=== PATIENT | male | born 1980 | race Hispanic/Latino ===

== ENCOUNTER 2024-09-30 16:10 | Emergency (ER) | payer SELFPAY ==
[~2024-09-30] VITALS: Ht 177.8 cm; Wt 86.2 kg
[2024-09-30 16:39] LABS: BASOPHILS # (AUTO) 0.05 K/uL (0.00-0.20); BASOPHILS % (AUTO) 0.7 % (0.0-5.0); EOSINOPHILS # (AUTO) 0.08 K/uL (0.00-0.70); EOSINOPHILS % (AUTO) 1.2 % (0.0-8.0); HEMATOCRIT 44.4 % (42-54); IMMATURE GRANULOCYTE ABSOLUTE 0.01 K/uL (0-1); LYMPHOCYTES # (AUTO) 1.9 K/uL (1.0-4.8); LYMPHOCYTES % (AUTO) 27.8 % (21.0-51.0); MEAN CORPUSCULAR HEMOGLOBIN 31.7 pg (27.0-33.0); MEAN CORPUSCULAR HGB CONC 33.8 g/dL (32.0-36.0); MEAN CORPUSCULAR VOLUME 93.9 fL (79-99); MONOCYTES # (AUTO) 0.5 K/uL (0.1-1.0); MONOCYTES % (AUTO) 7.8 % (3.0-13.0); NEUTROPHILS # (AUTO) 4.3 K/uL (1.8-7.7); NEUTROPHILS % (AUTO) 62.4 % (40.0-77.0); PLATELET COUNT (AUTO) 250 K/uL (130-400); RED BLOOD CELL COUNT(AUTO) 4.73 MIL/uL (4.50-6.20); RED CELL DISTRIBUTION WIDTH 12.1 % (11.0-15.5); WHITE BLOOD COUNT (AUTO) 6.8 K/uL (4.8-10.8)
[2024-09-30 16:51] LABS: CREATININE 0.9 mg/dL (0.5-1.3)
[2024-09-30 16:54] LABS: INR 1.01 (0.85-1.15); PROTHROMBIN TIME 10.7 SEC (9.6-11.6)
[2024-09-30 16:55] LABS: PARTIAL THROMBOPLASTIN TIME 27.1 SEC (26.3-35.5)
[2024-09-30 16:56] LABS: MAGNESIUM 1.6 mg/dL (1.80-2.40)
[2024-09-30] MEDS: MAGNESIUM 2GM PREMIX 50ML 50 ML IV STA (17:04)
--- NOTE | 2024-09-30 17:04 | HMCIMG ---
PORTABLE CHEST RADIOGRAPH INDICATION: CP COMPARISON: None FINDINGS: Heart size is normal. The pulmonary vascularity and rupinder appear normal. No abnormal pulmonary parenchymal opacity or consolidation identified. No significant pleural effusion noted. No pneumothorax detected. IMPRESSION: No radiographic evidence for any acute cardiopulmonary process.
[2024-09-30 17:06] LABS: APPEARANCE,URINE CLEAR (CLEAR); BILIRUBIN,URINE NEGATIVE (NEGATIVE); COLOR,URINE COLORLESS (YELLOW); GLUCOSE, URINE (UA) NEGATIVE (NEGATIVE); KETONES,URINE 10 mg/dL (NEGATIVE); LEUKOCYTE ESTERASE ,URINE NEGATIVE Leu/uL (NEGATIVE); NITRATE,URINE NEGATIVE (NEGATIVE); OCCULT BLOOD,URINE NEGATIVE (NEGATIVE); PROTEIN,URINE NEGATIVE (NEGATIVE); UROBILINOGEN,URINE 0.2 mg/dL (0.2-1.0)
[2024-09-30 17:09] LABS: ADD UA MICROSCOPIC NO
[2024-09-30 17:10] LABS: B-TYPE NATRIURETIC PEPTIDE < 5 pg/mL (0-100)
[2024-09-30] MEDS ORDERED: BUSP15 PO (17:34)
[2024-09-30] MEDS ORDERED: PANT40TA55 PO (17:34)
--- NOTE | 2024-09-30 17:34 | ERN ---
General Chief Complaint: Chest Pain Stated Complaint: CP Time Seen by MD: 16:15 Source: patient History of Present Illness Initial Comments Patient is a 44-year-old gentleman coming in to be evaluated for chest pressure. Patient states he was scared because he noticed his heart rate going up. States that he frequently sees his heart rate go up and blames on any under the anxiety. It does has a history of hypercholesteremia. Allergies: Coded Allergies: tramadol (Unverified Allergy, Unknown, 09/30/24) Past Medical History Past Medical History: Anxiety, Diabetes-Type II, Hypertension Past Surgical History: Other Surgical History Other: BACK SX, NECK SX ROS Dictation CONSTITUTIONAL: No chills, no fever, no weakness, no diaphoresis, no malaise. HEAD/FACE: No signs of trauma. EENT: No eye pain, no blurred vision, no tearing, no double vision, no ear pain, no ear discharge, no nose pain, no nasal congestion, no throat pain, no throat swelling, no mouth pain. RESPIRATORY: No cough, no orthopnea, no SOB, no stridor, no wheezing. CARDIOVASCULAR: No chest pain, no edema, no palpitations, no syncope. GASTROINTESTINAL/ABDOMINAL: No abdominal pain, no constipation, no diarrhea, no nausea, no vomiting. GENITOURINARY: No abnormal discharge, no dysuria, no frequent urination, no hematuria. No complaints of pain in the genitals. MUSCULOSKELETAL: No back pain, no gout, no joint pain, no joint swelling, no muscle pain, no muscle stiffness, no neck pain. INTEGUMENTARY: No change in color, no change in hair/nails, no dryness, no lesion, no lumps, no rash. NEUROLOGICAL/PSYCH: No anxiety, not depressed, no emotional problem, no heada kia, no numbness, no pre-existing deficit, no history of seizures, no tremors, no weakness. HEMATOLOGIC/LYMPHATIC: Not anemic, no history of blood clots, no apparent bleeding, no bruising, glands not swollen. All Systems Negative, Except as Noted. Physical Exam Physical Exam Dictation VITAL SIGNS: Reviewed. GENERAL APPEARANCE: Alert, oriented x3, no acute distress, obese. HEAD AND FACE: Non-traumatic. EYES: PERRL, pink conjunctivas, eyelid no trauma, anterior chamber clear. EARS: Pinnas intact and no signs of trauma or erythema. Ear canals clear and no discharge. TMs no erythema. NOSE: No discharge, no bleeding. OROPHARYNX: Mouth normal, teeth no caries, tongue pink. Pharynx clear, no erythema. Tonsils no exudates, no abscesses noted. Mucous membrane moist. NECK: Supple, non-tender, no thyromegaly, no masses, no JVD, no bruits. BREAST: Deferred. CHEST: No tenderness, no crepitus, no paradoxical movement, no retractions. LUNGS: Clear, well-ventilated, symmetric, no rales, no wheezing, no rhonchi, no stridor, good breath sounds bilaterally. HEART: Regular rate, regular rhythm, no murmur, no gallops. VASCULAR: No peripheral edema. ABDOMEN: Soft, positive bowel sounds, nondistended, no guarding, nontender, no rebound, no masses no hepatomegaly, no splenomegaly, no Gaston's sign, no hernias. RECTAL: Deferred. GENITAL: Deferred. NEUROLOGICAL: Normal speech, gross motor function intact, gross sensory function intact. MUSCULOSKELETAL: Neck nontender, full range of motion, back nontender, full range of motion. EXTREMITIES: Nontender, full range of motion. SKIN: Color pink, dry, no turgor, no rash, no lacerations, no abrasions, no contusions. LYMPHATICS: Deferred. Results Laboratory and Microbiology Lab and Micro Result Laboratory Tests Test 09/30/24 16:33 09/30/24 16:50 White Blood Count 6.8 K/uL (4.8-10.8) Red Blood Count 4.73 MIL/uL (4.50-6.20) Hemoglobin 15.0 g/dL (14.0-18.0) Hematocrit 44.4 % (42-54) Mean Corpuscular Volume 93.9 fL (79-99) Mean Corpuscular Hemoglobin 31.7 pg (27.0-33.0) Mean Corpuscular Hemoglobin Concent 33.8 g/dL (32.0-36.0) Red Cell Distribution Width 12.1 % (11.0-15.5) Platelet Count 250 K/uL (130-400) Mean Platelet Volume 10.1 fL (7.5-10.5) Immature Granulocyte % (Auto) 0.1 % (0-1) Neutrophils (%) (Auto) 62.4 % (40.0-77.0) Lymphocytes (%) (Auto) 27.8 % (21.0-51.0) Monocytes (%) (Auto) 7.8 % (3.0-13.0) Eosinophils (%) (Auto) 1.2 % (0.0-8.0) Basophils (%) (Auto) 0.7 % (0.0-5.0) Neutrophils # (Auto) 4.3 K/uL (1.8-7.7) Lymphocytes # (Auto) 1.9 K/uL (1.0-4.8) Monocytes # (Auto) 0.5 K/uL (0.1-1.0) Eosinophils # (Auto) 0.08 K/uL (0.00-0.70) Basophils # (Auto) 0.05 K/uL (0.00-0.20) Absolute Immature Granulocyte (auto 0.01 K/uL (0-1) Nucleated Red Blood Cells 0.0 % (0.0-0.19) Prothrombin Time 10.7 SEC (9.6-11.6) Prothromb Time International Ratio 1.01 (0.85-1.15) Activated Partial Thromboplast Time 27.1 SEC (26.3-35.5) Sodium Level 138 mmol/L (136-145) Potassium Level 4.0 mmol/L (3.5-5.1) Chloride Level 100 mmol/L (101-111) L Carbon Dioxide Level 30 mmol/L (21-32) Blood Urea Nitrogen 14 mg/dL (7-18) Creatinine 0.9 mg/dL (0.5-1.3) Glomerular Filtration Rate Calc 109 mL/min (>90) Random Glucose 144 mg/dL (70-105) H Total Calcium 9.4 mg/dL (8.5-10.1) Magnesium Level 1.60 mg/dL (1.80-2.40) L Total Creatine Kinase 146 U/L (21-232) Troponin I High Sensitivity 4 ng/L (4-75) B-Type Natriuretic Peptide < 5 pg/mL (0-100) Urine Color COLORLESS (YELLOW) Urine Appearance CLEAR (CLEAR) Urine pH 5.0 (5.0-8.0) Urine Specific [place] 1.006 (1.001-1.031) Urine Protein NEGATIVE mg/dL (NEGATIVE) Urine Glucose (UA) NEGATIVE mg/dL (NEGATIVE) Urine Ketones 10 mg/dL (NEGATIVE) H Urine Occult Blood NEGATIVE (NEGATIVE) Urine Nitrate NEGATIVE (NEGATIVE) Urine Bilirubin NEGATIVE mg/dL (NEGATIVE) Urine Urobilinogen 0.2 mg/dL (0.2-1.0) Urine Leukocyte Esterase NEGATIVE Glynn/uL Labs Reviewed?: Yes EKG/XRAY/US/CT/MRI EKG Comment 09/30/2024 time 4:14 p.m. Ventricular rate 86 Sinus rhythm [place] [address] wave elevation or depression X-RAY Comment [facility] [address] [place] [id number] IMAGING REPORT Signed PATIENT: RAZIA MARTINI MR#: [id number] : 1980 SEX: M AGE: 44 LOCATION: [facility] ORDER 162 STATUS: REG ER REPORT#: [id number] SERVICE [id number] REASON: CP ORDERING PHYSICIAN: GEN HARTMANN MD PROCEDURE: CXR1VW - CHEST 1VW PORTABLE CHEST RADIOGRAPH INDICATION: CP COMPARISON: None FINDINGS: Heart size is normal. The pulmonary vascularity and rupinder appear normal. No abnormal pulmonary parenchymal opacity or consolidation identified. No significant pleural effusion noted. No pneumothorax detected. IMPRESSION: No radiographic evidence for any acute cardiopulmonary process. DICTATED BY: MAI LONG MD DATE: 09/30/241701 ELECTRONICALLY SIGNED BY: MAI LONG MD DATE: 09/30/241703 [facility] MDM: Differential diagnosis: Anxiety, GERD, gastritis Patient is a 44-year-old gentleman coming in to be evaluated for tachycardia. Patient states he frequently presents with a send blames done in his anxiety. He also states that he was having some abdominal distention which subsides in his own. Cardiac workup negative for acute findings. Patient will be discharged with a diagnosis of anxiety and gastritis. Medication will be provided for symptomatic relief. I did advised patient appropriate follow up with PCP in 1-2 days for ongoing management and a possible stress test in the near future. ED Course Orders Procedure Category Date Status Time Cbc With Differential LAB 09/30/24 Complete 16:19 Prothrombin Time With LAB 09/30/24 Complete INR 16:19 B-Type Natriuretic LAB 09/30/24 Complete Peptide 16:19 Chest 1vw RAD 09/30/24 Resulted 16:19 12 Lead Ekg Tracing- EKG 09/30/24 Logged Technical 16:19 Magnesium LAB 09/30/24 Complete 16:19 Creatine Kinase, Total LAB 09/30/24 Complete 16:19 Troponin I High LAB 09/30/24 Complete Sensitivity 16:19 Urinalysis Profile LAB 09/30/24 Complete 16:19 Partial LAB 09/30/24 Complete Thromboplastin Time 16:19 Basic Metabolic Panel LAB 09/30/24 Complete 16:19 Magnesium 2gm Premix PHA 09/30/24 Complete 50ml (Magnesium 2gm 16:58 Current Medications Medications (Trade) Dose Ordered Sig/Regla Route PRN Reason Start Time Stop Time Status Last Admin Dose Admin Magnesium Sulfate 50 ml @ 0 mls/hr PROTOCOL STAT IV 09/30/24 16:58 09/30/24 17:01 DC 09/30/24 17:04 Vital Signs Date Time Temp Pulse Resp B/P (MAP) Pulse Ox O2 Delivery O2 Flow Rate FiO2 09/30/24 17:11 69 16 113/62 98 Room Air* 0 21 09/30/24 16:12 98.2 92 16 112/78 98 Room Air 0 DX & DISP Disposition: Discharge Departure Impression: Primary Impression: Gastritis Additional Impression: Anxiety Condition: Stable Scripts Pantoprazole Sodium (Protonix) 40 Mg Ectab 1 TAB PO DAILY for 30 Days, #30 TAB 0 Refills Prov: GEN HARTMANN MD 09/30/24 Buspirone HCl (Buspar) 15 Mg Tab 1 TAB PO BID for 30 Days, #60 TAB 0 Refills Prov: GEN HARTMANN MD 09/30/24 Additional Instructions: You have been reviewed in the emergency department at [facility] after presenting with chest pain. After considering your history, your risk factors, your EKG and your blood test troponins, have been found to be at very low risk less than (1 in 100) of having a major adverse cardiac event (like heart attack) in the near future. In the " low risk" group, the risks of doing further tests and treatment as the inpatient outweighs the benefits. In many patients in the low risk group for the test of any sort or unnecessary, however he should discuss this further with his general practitioner who will understand the medical and personal backgrounds better. Because we have never declared you" no risk" we would suggest. 1 returning for medical review if you have further episodes of chest pain/arm pain or other concerning symptoms like dizziness, collapse, palpitations or shortness of breath. 2. Following up with your local doctor who will consider the need for further testing and will also ensure that any modifiable risk factors you may have for heart disease are optimally managed. Patient will be discharged in stable condition at the moment discharge patient states , no chest pain Referrals: SELF,REFERRAL (PCP) LALIT JORGE MD, LUIS A MD Time of Disposition: 17:33 GEN HARTMANN MD Sep 30, 2024 17:34
[2024-09-30 18:18] VITALS: BP 118/65; PULSE 65; RESP 16; TEMP 98.2; O2SAT 98
--- NOTE | 2024-10-01 07:29 | EKG ---
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
== END 2024-09-30 18:34 | disposition home or self-care (01) ==
LOC: EDH 16:10
DX: K29.70 Gastritis, unspecified, without bleeding (principal); F41.9 Anxiety disorder, unspecified; E11.9 Type 2 diabetes mellitus without complications; E78.00 Pure hypercholesterolemia, unspecified; I10 Essential (primary) hypertension; Z88.5 Allergy status to narcotic agent
CPT/HCPCS: 99285; 96365; 71045; 82550; 83735; 84484; 80048; 83880; 85025; 85610; 85730; 81003; 36415; 93005; J3475